=== PATIENT | female | born 1935 | race Caucasian/White ===

== ENCOUNTER 2021-01-15 18:09 | Inpatient (IN) ==
[2021-01-15 23:23] LABS: ABS Lymphocytes 0.5 10^3/ul (1.0-4.8); ABS Monocytes 0.9 10^3/ul (0-0.8); ABS Neutrophils 6.6 10^3/ul (1.5-7.7); Hematocrit 31 % (35-47); Hemoglobin 10.3 g/dL (12.0-16.0); Lymphocyte % 6.5 %; Mean Corpuscular HGB Conc 33 g/dL (31-36); Mean Corpuscular Hemoglobin 29 pg (27-31); Mean Corpuscular Volume 88 fL (80-97); Mean Platelet Volume 8.3 fL (7.4-10.4); Platelet Count 256 10^3/uL (150-450); Red Blood Count 3.54 10^6 /uL (3.70-4.87); Red Cell Distribution Width 16 % (10-15)
[2021-01-15 23:31] LABS: Rapid COVID-19 Molecular Detected (Undetected)
[2021-01-15 23:38] LABS: Influenza A Molecular Negative (Negative); Influenza B Molecular Negative (Negative)
[2021-01-15 23:44] LABS: ALT 9 U/L (7-52); AST 14 U/L (13-39); Albumin 3.4 g/dL (3.2-5.2); Albumin/Globulin Ratio 0.9 (1-3); Alkaline Phosphatase 93 U/L (35-149); Anion Gap 7 mmol/L (2-11); Blood Urea Nitrogen 18 mg/dL (6-24); C Reactive Protein 93.96 mg/L (<8.01); CO2 Carbon Dioxide 26 mmol/L (22-32); Chloride 107 mmol/L (101-111); Globulin 3.7 g/dL (2-4); Glucose 118 mg/dL (70-100); Potassium 3.5 mmol/L (3.5-5.0); Sodium 140 mmol/L (135-145); Total Protein 7.1 g/dL (6.4-8.9)
[2021-01-15 23:51] LABS: Troponin I 0.03 ng/mL (<0.03)
[2021-01-15 23:54] LABS: TSH Ultra Thyroid Stim Horm 3.71 mcIU/mL (0.34-5.60)
[2021-01-16 00:38] LABS: Activated Partial Thrombo Time 30.6 seconds (26.0-38.0); INR 1.21 (0.86-1.15)
[2021-01-16 00:38] LABS: Venous Bicarbonate HCO3 24.3 mmol/L (24-28)
[2021-01-16 00:44] LABS: LDH 189 U/L (140-271)
[2021-01-16 01:04] LABS: Ferritin 193.6 ng/mL (11-307)
[2021-01-16] MEDS ORDERED: NS 0.9% 1000 ml BAG 1,000 ML IV SCH (07:00)
[2021-01-16] MEDS: Enoxaparin 40 MG/0.4 ML SYR SUBCUT SCH (08:15)
[2021-01-16 16:15] LABS: Body Fluid Source Synovial Fluid
[2021-01-16 17:26] LABS: Body Fluid WBC 20236 /mcL
[2021-01-16] MEDS ORDERED: Vancomycin 1,000 MG in NS 0.9% 250 ml 250 ML IVPB ONE (17:49)
[2021-01-16 17:50] LABS: Body Fluid Appearance Cloudy; Body Fluid Color Yellow; Body Fluid Mono 1 %; Body Fluid Total Cells Counted 200
[2021-01-16] MEDS ORDERED: Vancomycin 1,000 MG in NS 0.9% 250 ml 250 ML IVPB SCH (18:00)
[2021-01-16] MEDS ORDERED: Vancomycin per Pharmacy 1 EA NOTE FOLLOW UP SCH (18:00)
[2021-01-16] MEDS ORDERED: Vancomycin 1,250 MG in NS 0.9% 250 ml 250 ML IVPB ONE (18:15)
[2021-01-17] MEDS: ceFAZolin 2 GM in NS PREMIX 2 GM/100 ML BAG IVPB SCH ×3 (03:34→19:45)
[2021-01-17 06:22] LABS: ABS Lymphocytes 0.5 10^3/ul (1.0-4.8); ABS Monocytes 0.6 10^3/ul (0-0.8); ABS Neutrophils 4.7 10^3/ul (1.5-7.7); Eosinophil % 0.2 %; Hematocrit 28 % (35-47); Hemoglobin 9.1 g/dL (12.0-16.0); Lymphocyte % 8.4 %; Mean Corpuscular HGB Conc 33 g/dL (31-36); Mean Corpuscular Hemoglobin 29 pg (27-31); Mean Corpuscular Volume 88 fL (80-97); Mean Platelet Volume 8.3 fL (7.4-10.4); Platelet Count 221 10^3/uL (150-450); Red Blood Count 3.15 10^6 /uL (3.70-4.87); Red Cell Distribution Width 16 % (10-15); White Blood Count 5.9 10^3/uL (3.5-10.8)
[2021-01-17 06:47] LABS: Calcium 8.4 mg/dL (8.6-10.3); Potassium 3.2 mmol/L (3.5-5.0); eGFR CKD-EPI 86.4 (>60)
[2021-01-17 07:57] LABS: Magnesium 1.7 mg/dL (1.9-2.7)
[2021-01-17] MEDS ORDERED: Vancomycin 1,250 MG in NS 0.9% 250 ml 250 ML IVPB SCH (08:00)
[2021-01-17] MEDS: Enoxaparin 40 MG/0.4 ML SYR SUBCUT SCH (09:38)
[2021-01-17] MEDS ORDERED: Potassium Chlor 10 meq TAB PO ONE (14:16)
[2021-01-17] MEDS ORDERED: Magnesium Sulfate 2 gm BAG 2 GM/50 ML BAG IVPB ONE (21:33)
[2021-01-18] MEDS: ceFAZolin 2 GM in NS PREMIX 2 GM/100 ML BAG IVPB SCH ×3 (03:33→20:16)
[2021-01-18] MEDS ORDERED: Vancomycin Trough Check NOTE FOLLOW UP ONE (07:30)
[2021-01-18 09:03] LABS: ABS Eosinophils 0.1 10^3/ul (0-0.6); ABS Lymphocytes 0.8 10^3/ul (1.0-4.8); ABS Monocytes 0.4 10^3/ul (0-0.8); ABS Neutrophils 5.2 10^3/ul (1.5-7.7); Eosinophil % 0.9 %; Hematocrit 29 % (35-47); Hemoglobin 9.6 g/dL (12.0-16.0); Lymphocyte % 11.9 %; Mean Corpuscular HGB Conc 33 g/dL (31-36); Mean Corpuscular Hemoglobin 29 pg (27-31); Mean Corpuscular Volume 87 fL (80-97); Platelet Count 262 10^3/uL (150-450); Red Blood Count 3.31 10^6 /uL (3.70-4.87); Red Cell Distribution Width 17 % (10-15); White Blood Count 6.5 10^3/uL (3.5-10.8)
[2021-01-18 09:23] LABS: Calcium 8.5 mg/dL (8.6-10.3); Magnesium 2.2 mg/dL (1.9-2.7); Potassium 3.7 mmol/L (3.5-5.0); eGFR CKD-EPI 73.1 (>60)
[2021-01-18 09:40] LABS: eGFR CKD-EPI 73.1 (>60)
[2021-01-18] MEDS: Enoxaparin 40 MG/0.4 ML SYR SUBCUT SCH (10:37)
[2021-01-19] MEDS: ceFAZolin 2 GM in NS PREMIX 2 GM/100 ML BAG IVPB SCH ×3 (04:31→21:20)
[2021-01-19 07:19] LABS: ABS Eosinophils 0.1 10^3/ul (0-0.6); ABS Lymphocytes 0.6 10^3/ul (1.0-4.8); ABS Monocytes 0.4 10^3/ul (0-0.8); ABS Neutrophils 4.2 10^3/ul (1.5-7.7); Hematocrit 27 % (35-47); Lymphocyte % 11.1 %; Mean Corpuscular HGB Conc 34 g/dL (31-36); Mean Corpuscular Hemoglobin 30 pg (27-31); Mean Corpuscular Volume 88 fL (80-97); Mean Platelet Volume 8.2 fL (7.4-10.4); Platelet Count 254 10^3/uL (150-450); Red Blood Count 3.05 10^6 /uL (3.70-4.87); Red Cell Distribution Width 16 % (10-15); White Blood Count 5.3 10^3/uL (3.5-10.8)
[2021-01-19 07:35] LABS: Calcium 8.4 mg/dL (8.6-10.3); eGFR CKD-EPI 64.3 (>60)
[2021-01-19] MEDS: Enoxaparin 40 MG/0.4 ML SYR SUBCUT SCH (10:09)
[2021-01-20] MEDS: ceFAZolin 2 GM in NS PREMIX 2 GM/100 ML BAG IVPB SCH (03:05)
[2021-01-20] MEDS: Enoxaparin 40 MG/0.4 ML SYR SUBCUT SCH (07:54)
[2021-01-20 13:25] LABS: % Iron Saturation 12 % (14 - 50); Total Iron Binding Capacity 110 mcg/dL (250 - 400)
[2021-01-21] MEDS: Enoxaparin 40 MG/0.4 ML SYR SUBCUT SCH (09:10)
[2021-01-22] MEDS: Enoxaparin 40 MG/0.4 ML SYR SUBCUT SCH (09:37)
[2021-01-22 14:39] VITALS: BP 133/59
[2021-01-23 14:18] LABS: Cyclic Citrullinated Pept IgG <15.6 U
[2021-01-24 13:07] LABS: B. garinii/B. afzellii PCR Negative (Negative)
== END 2021-01-22 16:08 | disposition swing bed (61) | DRG 564 ==
LOC: ED 18:09 → EDHOLD 01-16 02:31 → SUATTDRO 01-16 02:31 → EDHOLD 01-16 09:48 → MED 01-16 11:29
PROVIDERS: ADMIT Internal Medicine; ATTEND Internal Medicine

== ENCOUNTER 2021-01-22 16:08 | Inpatient (IN) ==
[2021-01-22] MEDS: Enoxaparin 40 MG/0.4 ML SYR SUBCUT SCH (21:19)
[2021-01-23] MEDS: Enoxaparin 40 MG/0.4 ML SYR SUBCUT SCH (21:14)
[2021-01-24] MEDS: Enoxaparin 40 MG/0.4 ML SYR SUBCUT SCH (20:41)
[2021-01-25] MEDS: Enoxaparin 40 MG/0.4 ML SYR SUBCUT SCH (20:46)
[2021-01-26] MEDS: Enoxaparin 40 MG/0.4 ML SYR SUBCUT SCH (20:31)
[2021-01-27 06:05] LABS: Hematocrit 24 % (35-47); Hemoglobin 7.9 g/dL (12.0-16.0); Mean Platelet Volume 7.9 fL (7.4-10.4); Platelet Count 343 10^3/uL (150-450)
[2021-01-27 06:28] LABS: eGFR CKD-EPI 86.7 (>60)
[2021-01-27] MEDS: Enoxaparin 40 MG/0.4 ML SYR SUBCUT SCH (20:18)
[2021-01-28] MEDS: Enoxaparin 40 MG/0.4 ML SYR SUBCUT SCH (20:46)
[2021-01-29] MEDS ORDERED: COVID-19 VACCINE, MRNA(MODERNA)/PF 100 MCG/0.5 ML IM ONE (15:00)
[2021-01-29] MEDS: Enoxaparin 40 MG/0.4 ML SYR SUBCUT SCH (20:11)
[2021-01-30] MEDS: Enoxaparin 40 MG/0.4 ML SYR SUBCUT SCH (20:55)
[2021-01-31] MEDS: Enoxaparin 40 MG/0.4 ML SYR SUBCUT SCH (21:25)
[2021-02-01] MEDS: Enoxaparin 40 MG/0.4 ML SYR SUBCUT SCH (20:47)
[2021-02-02 12:02] LABS: Rapid COVID-19 Molecular Detected (Undetected)
[2021-02-02] MEDS: Enoxaparin 40 MG/0.4 ML SYR SUBCUT SCH (17:36)
[2021-02-03 04:54] LABS: Hematocrit 25 % (35-47); Hemoglobin 8.2 g/dL (12.0-16.0); Mean Platelet Volume 7.5 fL (7.4-10.4); Platelet Count 363 10^3/uL (150-450)
[2021-02-03] MEDS: Enoxaparin 40 MG/0.4 ML SYR SUBCUT SCH (16:52)
[2021-02-04] MEDS: Enoxaparin 40 MG/0.4 ML SYR SUBCUT SCH (17:03)
[2021-02-05] MEDS: Enoxaparin 40 MG/0.4 ML SYR SUBCUT SCH (17:24)
[2021-02-06] MEDS: Enoxaparin 40 MG/0.4 ML SYR SUBCUT SCH (17:31)
[2021-02-07] MEDS: Enoxaparin 40 MG/0.4 ML SYR SUBCUT SCH (18:18)
[2021-02-08] MEDS: Enoxaparin 40 MG/0.4 ML SYR SUBCUT SCH (17:05)
[2021-02-09] MEDS: Enoxaparin 40 MG/0.4 ML SYR SUBCUT SCH (17:07)
[2021-02-10 06:22] LABS: Hematocrit 27 % (35-47); Hemoglobin 8.8 g/dL (12.0-16.0); Mean Platelet Volume 8.1 fL (7.4-10.4); Platelet Count 281 10^3/uL (150-450)
[2021-02-10 06:43] LABS: eGFR CKD-EPI 65.2 (>60)
[2021-02-10] MEDS: Enoxaparin 40 MG/0.4 ML SYR SUBCUT SCH (16:32)
[2021-02-11 08:18] VITALS: BP 166/79
== END 2021-02-11 11:45 | DRG 178 ==
LOC: SUATTDRO 16:08 → MED 16:08
PROVIDERS: ADMIT Internal Medicine; ATTEND Hospitalist

== ENCOUNTER 2021-06-28 15:05 | Inpatient (IN) ==
[2021-06-28] MEDS ORDERED: Ondansetron 4 mg VIAL 2 MG/ML 2 ml VIAL IV ONE (17:14)
[2021-06-28 17:48] LABS: ABS Lymphocytes 0.8 10^3/ul (1.0-4.8); ABS Monocytes 0.5 10^3/ul (0-0.8); Eosinophil % 0.2 %; Hematocrit 35 % (35-47); Lymphocyte % 10.7 %; Mean Corpuscular HGB Conc 32 g/dL (31-36); Mean Corpuscular Hemoglobin 28 pg (27-31); Mean Corpuscular Volume 89 fL (80-97); Mean Platelet Volume 8.7 fL (7.4-10.4); Nucleated Red Blood Cells % 0.1; Platelet Count 221 10^3/uL (150-450); Red Blood Count 3.92 10^6 /uL (3.70-4.87); Red Cell Distribution Width 18 % (10-15); White Blood Count 7.3 10^3/uL (3.5-10.8)
[2021-06-28 18:34] LABS: Albumin 3.8 g/dL (3.2-5.2); Albumin/Globulin Ratio 1.2 (1-3); Calcium 9.1 mg/dL (8.6-10.3); Globulin 3.2 g/dL (2-4); Potassium 3.1 mmol/L (3.5-5.0); Total Bilirubin 0.5 mg/dL (0.2-1.0); eGFR CKD-EPI 63.9 (>60)
[2021-06-28] MEDS ORDERED: Morphine 2 MG/ML SYRINGE IV PRN (19:43)
[2021-06-28 19:44] LABS: Magnesium 1.9 mg/dL (1.9-2.7)
[2021-06-28 19:58] LABS: TSH Ultra Thyroid Stim Horm 0.29 mcIU/mL (0.34-5.60)
[2021-06-28] MEDS ORDERED: Lactated Ringers 1000 ml BAG 1,000 ML IV SCH (20:00)
[2021-06-28] MEDS: KCL 20 MEQ/100 ML IVPREMIX 20 MEQ/100 ML BAG IV SCH ×2 (21:31→23:36)
[2021-06-28 21:34] LABS: T4, Total 15.15 mcg/dL (6.09-12.23)
[2021-06-28] MEDS ORDERED: Enoxaparin 40 MG/0.4 ML SYR SUBCUT SCH (22:00)
[2021-06-29] MEDS: Acetaminophen IV 1 GM/100ML 100 ML IV PRN ×3 (00:59→21:05)
[2021-06-29 01:19] LABS: Urine Appearance Cloudy; Urine Bilirubin Negative (Negative); Urine Blood 1+ (Negative); Urine Color Yellow; Urine Glucose Negative (Negative); Urine Ketones Negative (Negative); Urine Nitrite Negative (Negative); Urine Protein Negative (Negative); Urine Urobilinogen Negative (Negative)
[2021-06-29 01:21] LABS: Urine Bacteria Absent (Absent); Urine Red Blood Cell Trace(0-2/hpf) (Absent); Urine White Blood Cell Trace(0-5/hpf) (Absent)
[2021-06-29] MEDS: KCL 20 MEQ/100 ML IVPREMIX 20 MEQ/100 ML BAG IV SCH (02:54)
[2021-06-29 06:53] LABS: ABS Lymphocytes 0.9 10^3/ul (1.0-4.8); ABS Monocytes 0.5 10^3/ul (0-0.8); ABS Neutrophils 3.5 10^3/ul (1.5-7.7); Eosinophil % 0.2 %; Hematocrit 31 % (35-47); Hemoglobin 10.4 g/dL (12.0-16.0); Lymphocyte % 17.9 %; Mean Corpuscular HGB Conc 33 g/dL (31-36); Mean Corpuscular Hemoglobin 30 pg (27-31); Mean Corpuscular Volume 89 fL (80-97); Mean Platelet Volume 8.6 fL (7.4-10.4); Platelet Count 198 10^3/uL (150-450); Red Blood Count 3.51 10^6 /uL (3.70-4.87); Red Cell Distribution Width 18 % (10-15); White Blood Count 4.9 10^3/uL (3.5-10.8)
[2021-06-29 07:10] LABS: Potassium 3.8 mmol/L (3.5-5.0); eGFR CKD-EPI 86.1 (>60)
[2021-06-29 09:54] LABS: Calcium 8.3 mg/dL (8.6-10.3)
[2021-06-29 12:47] LABS: Free T4 1.44 ng/dL (0.61-1.12)
[2021-06-29] MEDS ORDERED: Enoxaparin 40 MG/0.4 ML SYR SUBCUT SCH (22:00)
[2021-06-30 06:01] LABS: ABS Lymphocytes 0.8 10^3/ul (1.0-4.8); ABS Monocytes 0.7 10^3/ul (0-0.8); ABS Neutrophils 5.6 10^3/ul (1.5-7.7); Eosinophil % 0.4 %; Hematocrit 30 % (35-47); Hemoglobin 9.6 g/dL (12.0-16.0); Lymphocyte % 10.8 %; Mean Corpuscular HGB Conc 32 g/dL (31-36); Mean Corpuscular Hemoglobin 28 pg (27-31); Mean Corpuscular Volume 88 fL (80-97); Mean Platelet Volume 8.8 fL (7.4-10.4); Platelet Count 180 10^3/uL (150-450); Red Cell Distribution Width 18 % (10-15); White Blood Count 7.1 10^3/uL (3.5-10.8)
[2021-06-30] MEDS ORDERED: Bupivacaine 0.25% SDV PF 10 ML VIAL INJ ONE ×2 (11:06→13:46)
[2021-06-30] MEDS ORDERED: Bupivacaine 0.5% W/EPI SDV 10 ML VIAL INJ ONE (11:06)
[2021-06-30] MEDS ORDERED: Propofol 10 MG/ML 20 ML BTL ONE (13:54)
[2021-06-30] MEDS ORDERED: fentaNYL 100 mcg/2 ml 50 MCG/ML VIAL ONE ×2 (13:57→18:52)
[2021-06-30] MEDS ORDERED: Rocuronium 50 mg VIAL 10 mg/ml 5 ml VIAL (50 mg) ONE (13:59)
[2021-06-30] MEDS ORDERED: ceFAZolin 2 GM in NS PREMIX 2 GM/100 ML BAG IVPB ONE (14:07)
[2021-06-30 14:22] LABS: Activated Partial Thrombo Time 31.4 seconds (26.0-38.0); INR 1.2 (0.86-1.15)
[2021-06-30] MEDS ORDERED: Phenylephrine IV 10 MG/ML 1 ml VIAL ONE (15:41)
[2021-06-30] MEDS ORDERED: Dexamethasone IV 4 MG/ML VIAL 1 ml VIAL ONE (17:08)
[2021-06-30] MEDS ORDERED: Acetaminophen IV 1 GM/100ML 100 ML IV ONE (17:09)
[2021-06-30] MEDS ORDERED: Ondansetron 4 mg VIAL 2 MG/ML 2 ml VIAL ONE (17:52)
[2021-07-01] MEDS: ceFAZolin 1 GM X 3 DOSES POST-OP Q8H (AddVan) IVPB SCH ×3 (01:26→17:16)
[2021-07-01] MEDS: Acetaminophen IV 1 GM/100ML 100 ML IV PRN ×2 (04:48→21:30)
[2021-07-01 06:26] LABS: Hematocrit 29 % (35-47); Hemoglobin 9.6 g/dL (12.0-16.0); Mean Corpuscular HGB Conc 34 g/dL (31-36); Mean Corpuscular Hemoglobin 30 pg (27-31); Mean Corpuscular Volume 89 fL (80-97); Mean Platelet Volume 8.9 fL (7.4-10.4); Platelet Count 195 10^3/uL (150-450); Red Blood Count 3.24 10^6 /uL (3.70-4.87); Red Cell Distribution Width 17 % (10-15); White Blood Count 8.6 10^3/uL (3.5-10.8)
[2021-07-01 07:03] LABS: Calcium 8.3 mg/dL (8.6-10.3); Potassium 3.9 mmol/L (3.5-5.0); eGFR CKD-EPI 65.7 (>60)
[2021-07-01] MEDS: Enoxaparin 30 MG/0.3 ML SYR SUBCUT SCH (09:36)
[2021-07-01] MEDS ORDERED: Polyethylene Glycol 3350 17 GM PACKET PO PRN (14:02)
[2021-07-01] MEDS: cefTRIAXone 1 gm/50 mL D5W 1 GM/50 ML BAG IV SCH (17:51)
[2021-07-01] MEDS: Senna TAB 8.6 mg TAB PO PRN (21:26)
[2021-07-02 06:19] LABS: Hematocrit 26 % (35-47); Hemoglobin 8.7 g/dL (12.0-16.0)
[2021-07-02 06:50] LABS: Calcium 8.1 mg/dL (8.6-10.3); eGFR CKD-EPI 55.6 (>60)
[2021-07-02] MEDS: Enoxaparin 30 MG/0.3 ML SYR SUBCUT SCH (09:37)
[2021-07-02] MEDS ORDERED: Senna TAB 8.6 mg TAB PO PRN (14:37)
[2021-07-02] MEDS: cefTRIAXone 1 gm/50 mL D5W 1 GM/50 ML BAG IV SCH (17:25)
[2021-07-03] MEDS: Acetaminophen IV 1 GM/100ML 100 ML IV PRN (00:07)
[2021-07-03 05:44] LABS: ABS Eosinophils 0.1 10^3/ul (0-0.6); ABS Lymphocytes 0.9 10^3/ul (1.0-4.8); ABS Monocytes 0.5 10^3/ul (0-0.8); ABS Neutrophils 4.3 10^3/ul (1.5-7.7); Eosinophil % 1.6 %; Hematocrit 28 % (35-47); Lymphocyte % 15.3 %; Mean Corpuscular HGB Conc 32 g/dL (31-36); Mean Corpuscular Hemoglobin 29 pg (27-31); Mean Corpuscular Volume 88 fL (80-97); Mean Platelet Volume 8.8 fL (7.4-10.4); Platelet Count 219 10^3/uL (150-450); Red Blood Count 3.17 10^6 /uL (3.70-4.87); Red Cell Distribution Width 17 % (10-15); White Blood Count 5.9 10^3/uL (3.5-10.8)
[2021-07-03 06:27] LABS: Calcium 8.2 mg/dL (8.6-10.3); Magnesium 1.8 mg/dL (1.9-2.7); Potassium 4.3 mmol/L (3.5-5.0)
[2021-07-03] MEDS: Enoxaparin 30 MG/0.3 ML SYR SUBCUT SCH (08:40)
[2021-07-03] MEDS ORDERED: Magnesium Sulfate IV 1GM/100ML 1 GM/100 ML BAG IV ONE (09:07)
[2021-07-03] MEDS: Magnesium Hydroxide LIQ 30 ML UDC PO PRN (13:48)
[2021-07-03] MEDS: cefTRIAXone 1 gm/50 mL D5W 1 GM/50 ML BAG IV SCH (17:24)
[2021-07-04] MEDS: Enoxaparin 30 MG/0.3 ML SYR SUBCUT SCH (08:41)
[2021-07-04] MEDS: Magnesium Hydroxide LIQ 30 ML UDC PO PRN (13:11)
[2021-07-05] MEDS: Enoxaparin 30 MG/0.3 ML SYR SUBCUT SCH (10:30)
[2021-07-06 06:12] LABS: ABS Eosinophils 0.1 10^3/ul (0-0.6); ABS Lymphocytes 0.6 10^3/ul (1.0-4.8); ABS Monocytes 0.5 10^3/ul (0-0.8); ABS Neutrophils 3.2 10^3/ul (1.5-7.7); Eosinophil % 2.2 %; Hematocrit 25 % (35-47); Lymphocyte % 13.9 %; Mean Corpuscular HGB Conc 33 g/dL (31-36); Mean Corpuscular Hemoglobin 29 pg (27-31); Mean Corpuscular Volume 88 fL (80-97); Mean Platelet Volume 8.3 fL (7.4-10.4); Nucleated Red Blood Cells % 0.1; Platelet Count 295 10^3/uL (150-450); Red Blood Count 2.81 10^6 /uL (3.70-4.87); Red Cell Distribution Width 17 % (10-15); White Blood Count 4.4 10^3/uL (3.5-10.8)
[2021-07-06 06:30] LABS: Calcium 8.3 mg/dL (8.6-10.3); Potassium 5.2 mmol/L (3.5-5.0); eGFR CKD-EPI 87.1 (>60)
[2021-07-06] MEDS: Enoxaparin 30 MG/0.3 ML SYR SUBCUT SCH (08:52)
[2021-07-06 15:40] LABS: Albumin 2.8 g/dL (3.2-5.2); Albumin/Globulin Ratio 1.2 (1-3); Direct Bilirubin 0.1 mg/dL (0.03-0.18); Globulin 2.3 g/dL (2-4); Indirect Bilirubin 0.4 mg/dL (0.3-1.0); Total Bilirubin 0.5 mg/dL (0.2-1.0); Total Protein 5.1 g/dL (6.4-8.9)
[2021-07-07] MEDS: Enoxaparin 30 MG/0.3 ML SYR SUBCUT SCH (09:03)
[2021-07-07 12:15] LABS: ABS Eosinophils 0.1 10^3/ul (0-0.6); ABS Lymphocytes 0.6 10^3/ul (1.0-4.8); ABS Monocytes 0.6 10^3/ul (0-0.8); ABS Neutrophils 3.2 10^3/ul (1.5-7.7); Eosinophil % 2.1 %; Hematocrit 27 % (35-47); Hemoglobin 8.9 g/dL (12.0-16.0); Lymphocyte % 13.7 %; Mean Corpuscular HGB Conc 33 g/dL (31-36); Mean Corpuscular Hemoglobin 29 pg (27-31); Mean Corpuscular Volume 90 fL (80-97); Mean Platelet Volume 8.3 fL (7.4-10.4); Platelet Count 381 10^3/uL (150-450); Red Blood Count 3.04 10^6 /uL (3.70-4.87); Red Cell Distribution Width 17 % (10-15); White Blood Count 4.5 10^3/uL (3.5-10.8)
[2021-07-07 13:32] LABS: Calcium 8.1 mg/dL (8.6-10.3); Magnesium 2.3 mg/dL (1.9-2.7); eGFR CKD-EPI 65.7 (>60)
[2021-07-07 13:33] LABS: Potassium 5.1 mmol/L (3.5-5.0)
[2021-07-07] MEDS: Senna TAB 8.6 mg TAB PO PRN (20:51)
[2021-07-08 05:35] LABS: Calcium 7.9 mg/dL (8.6-10.3); Potassium 4.5 mmol/L (3.5-5.0); eGFR CKD-EPI 68.5 (>60)
[2021-07-08] MEDS: Enoxaparin 30 MG/0.3 ML SYR SUBCUT SCH (08:44)
[2021-07-09] MEDS: Enoxaparin 30 MG/0.3 ML SYR SUBCUT SCH (09:29)
[2021-07-09] MEDS ORDERED: COVID-19 VACCINE, MRNA(MODERNA)/PF 100 MCG/0.5 ML IM ONE (15:00)
[2021-07-10] MEDS: Enoxaparin 30 MG/0.3 ML SYR SUBCUT SCH (10:34)
[2021-07-10 15:28] VITALS: BP 130/76
== END 2021-07-10 17:04 | disposition swing bed (61) | DRG 481 ==
LOC: ED 15:05 → EDHOLD 19:13 → SUATTDRO 19:13 → SSU 06-29 00:19
PROVIDERS: ADMIT Internal Medicine; ATTEND Internal Medicine

== ENCOUNTER 2021-07-10 17:16 | Inpatient (IN) ==
[2021-07-10] MEDS ORDERED: Polyethylene Glycol 3350 17 GM PACKET PO PRN (18:06)
[2021-07-10] MEDS ORDERED: Senna TAB 8.6 mg TAB PO PRN (18:06)
[2021-07-11] MEDS: Enoxaparin 30 MG/0.3 ML SYR SUBCUT SCH (09:37)
[2021-07-12] MEDS: Enoxaparin 30 MG/0.3 ML SYR SUBCUT SCH (08:52)
[2021-07-13] MEDS: Enoxaparin 30 MG/0.3 ML SYR SUBCUT SCH (08:14)
[2021-07-14] MEDS: Magnesium Hydroxide LIQ 30 ML UDC PO PRN (08:17)
[2021-07-14] MEDS: Enoxaparin 30 MG/0.3 ML SYR SUBCUT SCH (08:17)
[2021-07-14] MEDS ORDERED: Pneumococcal Vac 23-Polyvalent IM ONE (09:00)
[2021-07-15] MEDS: Enoxaparin 30 MG/0.3 ML SYR SUBCUT SCH (08:44)
[2021-07-15 15:09] LABS: Rapid COVID-19 Molecular Undetected (Undetected)
[2021-07-15 16:01] LABS: ABS Eosinophils 0.1 10^3/ul (0-0.6); ABS Lymphocytes 1.1 10^3/ul (1.0-4.8); ABS Monocytes 0.5 10^3/ul (0-0.8); ABS Neutrophils 3.5 10^3/ul (1.5-7.7); Hematocrit 30 % (35-47); Hemoglobin 9.3 g/dL (12.0-16.0); Lymphocyte % 21.1 %; Mean Corpuscular HGB Conc 32 g/dL (31-36); Mean Corpuscular Hemoglobin 29 pg (27-31); Mean Corpuscular Volume 91 fL (80-97); Mean Platelet Volume 7.2 fL (7.4-10.4); Platelet Count 486 10^3/uL (150-450); Red Blood Count 3.26 10^6 /uL (3.70-4.87); Red Cell Distribution Width 18 % (10-15); White Blood Count 5.1 10^3/uL (3.5-10.8)
[2021-07-15 16:45] LABS: Calcium 8.4 mg/dL (8.6-10.3); Potassium 4.4 mmol/L (3.5-5.0); eGFR CKD-EPI 74.8 (>60)
[2021-07-15 19:17] LABS: TSH Ultra Thyroid Stim Horm 11.29 mcIU/mL (0.34-5.60)
[2021-07-16 07:34] VITALS: BP 149/74
[2021-07-16] MEDS: Magnesium Hydroxide LIQ 30 ML UDC PO PRN (09:12)
== END 2021-07-16 17:35 | DRG 536 ==
LOC: SUATTDRO 17:16 → SSU 17:16
PROVIDERS: ADMIT Internal Medicine; ATTEND Internal Medicine

== ENCOUNTER 2021-11-29 19:55 | Inpatient (IN) ==
[2021-11-29 22:42] LABS: Activated Partial Thrombo Time 27.6 seconds (26.0-38.0); INR 1.23 (0.89-1.11)
[2021-11-29 22:53] LABS: Hematocrit 36 % (35-47); Hemoglobin 11.6 g/dL (12.0-16.0); Mean Corpuscular HGB Conc 32 g/dL (31-36); Mean Corpuscular Hemoglobin 30 pg (27-31); Mean Corpuscular Volume 92 fL (80-97); Red Blood Count 3.88 10^6 /uL (3.70-4.87); Red Cell Distribution Width 18 % (10-15); White Blood Count 10.7 10^3/uL (3.5-10.8)
[2021-11-29 23:08] LABS: ALT 18 U/L (7-52); Albumin 3.8 g/dL (3.2-5.2); Albumin/Globulin Ratio 1.1 (1-3); Alkaline Phosphatase 122 U/L (35-149); Blood Urea Nitrogen 27 mg/dL (6-24); CO2 Carbon Dioxide 24 mmol/L (22-32); Calcium 9.3 mg/dL (8.6-10.3); Chloride 106 mmol/L (101-111); Globulin 3.4 g/dL (2-4); Glucose 85 mg/dL (70-100); Sodium 145 mmol/L (135-145); Total Protein 7.2 g/dL (6.4-8.9); eGFR CKD-EPI 70.5 (>60)
[2021-11-29 23:15] LABS: Anion Gap 15 mmol/L (2-11)
[2021-11-29 23:49] LABS: ABS Lymphocytes 0.6 10^3/ul (1.0-4.8); ABS Monocytes 0.5 10^3/ul (0-0.8); ABS Neutrophils 9.6 10^3/ul (1.5-7.7); Eosinophil % 0.3 %; Lymphocyte % 5.9 %; Nucleated Red Blood Cells % 0.1; Platelet Count Platelets clumped. 10^3/uL (150-450)
[2021-11-29] MEDS: NS 0.9% 1000 ml BAG 1,000 ML IV SCH (23:51)
[2021-11-29] MEDS: Morphine 2 MG/ML SYRINGE IV PRN (23:52)
[2021-11-30 01:48] LABS: Potassium Redraw 2.9 mmol/L (3.5-5.0)
[2021-11-30 05:34] LABS: ABS Eosinophils 0.1 10^3/ul (0-0.6); ABS Lymphocytes 0.7 10^3/ul (1.0-4.8); ABS Monocytes 0.4 10^3/ul (0-0.8); ABS Neutrophils 5.6 10^3/ul (1.5-7.7); Hematocrit 31 % (35-47); Hemoglobin 10.2 g/dL (12.0-16.0); Lymphocyte % 10.4 %; Mean Corpuscular HGB Conc 33 g/dL (31-36); Mean Corpuscular Hemoglobin 30 pg (27-31); Mean Corpuscular Volume 92 fL (80-97); Mean Platelet Volume 8.8 fL (7.4-10.4); Platelet Count 174 10^3/uL (150-450); Red Cell Distribution Width 18 % (10-15); White Blood Count 6.9 10^3/uL (3.5-10.8)
[2021-11-30 06:22] LABS: Calcium 8.5 mg/dL (8.6-10.3); eGFR CKD-EPI 86.1 (>60)
[2021-11-30 06:36] LABS: Potassium 2.7 mmol/L (3.5-5.0)
[2021-11-30] MEDS: KCL 20 MEQ/100 ML IVPREMIX 20 MEQ/100 ML BAG IV SCH ×3 (06:47→11:31)
[2021-11-30] MEDS: Morphine 2 MG/ML SYRINGE IV PRN (07:46)
[2021-11-30] MEDS: NS 0.9% 1000 ml BAG 1,000 ML IV SCH (13:23)
[2021-11-30 14:21] LABS: Blood Urea Nitrogen 22 mg/dL (6-24); CO2 Carbon Dioxide 23 mmol/L (22-32); Calcium 8.6 mg/dL (8.6-10.3); Glucose 97 mg/dL (70-100); Magnesium 1.8 mg/dL (1.9-2.7); Potassium 3.7 mmol/L (3.5-5.0); Sodium 144 mmol/L (135-145); eGFR CKD-EPI 85.8 (>60)
[2021-11-30 14:32] LABS: Anion Gap 9 mmol/L (2-11); Chloride 112 mmol/L (101-111)
[2021-11-30] MEDS ORDERED: Morphine 2 MG/ML SYRINGE IV PRN ×2 (15:09→15:10)
[2021-11-30] MEDS ORDERED: Magnesium Sulfate 2 gm BAG 2 GM/50 ML BAG IVPB ONE (16:18)
[2021-11-30] MEDS: NS 0.45% 1000 ml BAG 1,000 ML IV SCH (16:31)
[2021-11-30 17:30] LABS: Total Iron Binding Capacity 199 mcg/dL (250-450); Transferrin 142 mg/dL (203-362)
[2021-11-30 17:45] LABS: TSH Ultra Thyroid Stim Horm 1.31 mcIU/mL (0.34-5.60)
[2021-11-30 17:53] LABS: Ferritin 335.1 ng/mL (11-307)
[2021-11-30 17:57] LABS: Folate 19.53 ng/mL (5.90-24.80)
[2021-11-30 17:58] LABS: Vitamin B12 207 pg/mL (180-914)
[2021-11-30 18:00] LABS: % Iron Saturation 10 % (15-55); Iron < 20 ug/dL (50-212); Unsaturated Iron Binding 179 ug/dL
[2021-11-30] MEDS: Heparin 5000 UNITS/ML 1 mL VIAL SUBCUT SCH (18:29)
[2021-11-30] MEDS ORDERED: Heparin 5000 UNITS/ML 1 mL VIAL SUBCUT SCH (22:00)
[2021-12-01] MEDS: Heparin 5000 UNITS/ML 1 mL VIAL SUBCUT SCH (02:01)
[2021-12-01] MEDS: NS 0.45% 1000 ml BAG 1,000 ML IV SCH (05:49)
[2021-12-01 06:41] LABS: ABS Eosinophils 0.3 10^3/ul (0-0.6); ABS Lymphocytes 1.1 10^3/ul (1.0-4.8); ABS Monocytes 0.5 10^3/ul (0-0.8); ABS Neutrophils 6.3 10^3/ul (1.5-7.7); Hematocrit 29 % (35-47); Hemoglobin 9.6 g/dL (12.0-16.0); Lymphocyte % 13.4 %; Mean Corpuscular HGB Conc 33 g/dL (31-36); Mean Corpuscular Hemoglobin 30 pg (27-31); Mean Corpuscular Volume 92 fL (80-97); Mean Platelet Volume 9.1 fL (7.4-10.4); Platelet Count 182 10^3/uL (150-450); Red Cell Distribution Width 18 % (10-15); White Blood Count 8.2 10^3/uL (3.5-10.8)
[2021-12-01 07:15] LABS: Calcium 8.2 mg/dL (8.6-10.3); Magnesium 2.2 mg/dL (1.9-2.7); Potassium 3.7 mmol/L (3.5-5.0); eGFR CKD-EPI 82.4 (>60)
[2021-12-01] MEDS ORDERED: Buffered Lidocaine 1% SYRIN 1 ml INTRADERM ONE (15:34)
[2021-12-01] MEDS ORDERED: ceFAZolin 2 GM in NS PREMIX 2 GM/100 ML BAG IVPB ONE (15:52)
[2021-12-01] MEDS ORDERED: Propofol 10 MG/ML 20 ML BTL ONE (15:53)
[2021-12-01] MEDS ORDERED: Lidocaine 2% PF 5 ML VIAL ONE (15:53)
[2021-12-01] MEDS ORDERED: Lactated Ringers 1000 ml BAG 1,000 ML IV SCH (16:00)
[2021-12-01] MEDS ORDERED: Bupivacaine 0.5% SDV PF 30ML VIAL ONE (16:04)
[2021-12-01] MEDS ORDERED: fentaNYL 100 mcg/2 ml 50 MCG/ML VIAL ONE (16:20)
[2021-12-01] MEDS ORDERED: Rocuronium 50 mg VIAL 10 mg/ml 5 ml VIAL (50 mg) ONE (16:21)
[2021-12-01] MEDS ORDERED: Phenylephrine IV 10 MG/ML 1 ml VIAL ONE (16:23)
[2021-12-01] MEDS ORDERED: Dexamethasone IV 4 MG/ML VIAL 1 ml VIAL ONE (17:11)
[2021-12-01] MEDS ORDERED: Ondansetron 4 mg VIAL 2 MG/ML 2 ml VIAL ONE (17:11)
[2021-12-01] MEDS ORDERED: Morphine 10 MG/ML VIAL (1 ml) ONE (17:33)
[2021-12-02] MEDS: ceFAZolin 1 GM X 3 DOSES POST-OP Q8H (AddVan) IVPB SCH ×3 (00:42→16:16)
[2021-12-02] MEDS: NS 0.45% 1000 ml BAG 1,000 ML IV SCH ×2 (01:41→14:53)
[2021-12-02 06:15] LABS: ABS Lymphocytes 0.4 10^3/ul (1.0-4.8); ABS Monocytes 0.3 10^3/ul (0-0.8); ABS Neutrophils 5.3 10^3/ul (1.5-7.7); Hematocrit 29 % (35-47); Hemoglobin 9.5 g/dL (12.0-16.0); Lymphocyte % 6.3 %; Mean Corpuscular HGB Conc 33 g/dL (31-36); Mean Corpuscular Hemoglobin 31 pg (27-31); Mean Corpuscular Volume 93 fL (80-97); Mean Platelet Volume 8.9 fL (7.4-10.4); Platelet Count 183 10^3/uL (150-450); Red Blood Count 3.09 10^6 /uL (3.70-4.87); Red Cell Distribution Width 18 % (10-15)
[2021-12-02 06:52] LABS: Calcium 8.1 mg/dL (8.6-10.3); Potassium 4.3 mmol/L (3.5-5.0); eGFR CKD-EPI 87.1 (>60)
[2021-12-03] MEDS: NS 0.45% 1000 ml BAG 1,000 ML IV SCH (05:47)
[2021-12-03 06:24] LABS: ABS Lymphocytes 0.8 10^3/ul (1.0-4.8); ABS Monocytes 0.5 10^3/ul (0-0.8); ABS Neutrophils 4.8 10^3/ul (1.5-7.7); Eosinophil % 0.8 %; Hematocrit 27 % (35-47); Hemoglobin 8.7 g/dL (12.0-16.0); Lymphocyte % 13.1 %; Mean Corpuscular HGB Conc 32 g/dL (31-36); Mean Corpuscular Hemoglobin 30 pg (27-31); Mean Corpuscular Volume 92 fL (80-97); Mean Platelet Volume 8.6 fL (7.4-10.4); Platelet Count 191 10^3/uL (150-450); Red Blood Count 2.95 10^6 /uL (3.70-4.87); Red Cell Distribution Width 17 % (10-15); White Blood Count 6.1 10^3/uL (3.5-10.8)
[2021-12-03 12:48] VITALS: BP 122/67
== END 2021-12-03 09:30 | DRG 522 ==
LOC: ED 19:55 → SUATTDRO 23:29 → EDHOLD 23:29 → SSU 11-30 07:41
PROVIDERS: ADMIT Hospitalist; ATTEND Internal Medicine

== ENCOUNTER 2021-12-03 09:06 | Inpatient (IN) ==
[2021-12-03] MEDS ORDERED: Senna TAB 8.6 mg TAB PO PRN (17:06)
[2021-12-05 07:07] LABS: ABS Eosinophils 0.2 10^3/ul (0-0.6); ABS Lymphocytes 0.6 10^3/ul (1.0-4.8); ABS Monocytes 0.4 10^3/ul (0-0.8); ABS Neutrophils 4.2 10^3/ul (1.5-7.7); Eosinophil % 3.3 %; Hematocrit 26 % (35-47); Hemoglobin 8.9 g/dL (12.0-16.0); Lymphocyte % 10.9 %; Mean Corpuscular HGB Conc 34 g/dL (31-36); Mean Corpuscular Hemoglobin 31 pg (27-31); Mean Corpuscular Volume 92 fL (80-97); Mean Platelet Volume 8.4 fL (7.4-10.4); Platelet Count 245 10^3/uL (150-450); Red Blood Count 2.83 10^6 /uL (3.70-4.87); Red Cell Distribution Width 18 % (10-15); White Blood Count 5.5 10^3/uL (3.5-10.8)
[2021-12-05 07:57] LABS: Albumin 2.3 g/dL (3.2-5.2); Calcium 8.1 mg/dL (8.6-10.3); Globulin 2.4 g/dL (2-4); Potassium 4.4 mmol/L (3.5-5.0); Total Bilirubin 0.5 mg/dL (0.2-1.0); Total Protein 4.7 g/dL (6.4-8.9); eGFR CKD-EPI 91.1 (>60)
[2021-12-12 06:16] LABS: ABS Eosinophils 0.1 10^3/ul (0-0.6); ABS Lymphocytes 0.9 10^3/ul (1.0-4.8); ABS Monocytes 0.5 10^3/ul (0-0.8); Eosinophil % 1.5 %; Hematocrit 25 % (35-47); Hemoglobin 8.2 g/dL (12.0-16.0); Lymphocyte % 16.2 %; Mean Corpuscular HGB Conc 33 g/dL (31-36); Mean Corpuscular Hemoglobin 31 pg (27-31); Mean Corpuscular Volume 93 fL (80-97); Mean Platelet Volume 7.5 fL (7.4-10.4); Platelet Count 437 10^3/uL (150-450); Red Blood Count 2.65 10^6 /uL (3.70-4.87); Red Cell Distribution Width 17 % (10-15); White Blood Count 5.4 10^3/uL (3.5-10.8)
[2021-12-12 07:03] LABS: Albumin 2.6 g/dL (3.2-5.2); Globulin 2.6 g/dL (2-4); Potassium 4.6 mmol/L (3.5-5.0); Total Bilirubin 0.3 mg/dL (0.2-1.0); Total Protein 5.2 g/dL (6.4-8.9); eGFR CKD-EPI 87.4 (>60)
[2021-12-19 06:58] LABS: ABS Eosinophils 0.1 10^3/ul (0-0.6); ABS Lymphocytes 0.8 10^3/ul (1.0-4.8); ABS Monocytes 0.5 10^3/ul (0-0.8); ABS Neutrophils 3.8 10^3/ul (1.5-7.7); Eosinophil % 1.6 %; Hematocrit 26 % (35-47); Hemoglobin 8.2 g/dL (12.0-16.0); Lymphocyte % 15.5 %; Mean Corpuscular HGB Conc 32 g/dL (31-36); Mean Corpuscular Hemoglobin 30 pg (27-31); Mean Corpuscular Volume 93 fL (80-97); Mean Platelet Volume 7.5 fL (7.4-10.4); Platelet Count 431 10^3/uL (150-450); Red Blood Count 2.74 10^6 /uL (3.70-4.87); Red Cell Distribution Width 17 % (10-15); White Blood Count 5.2 10^3/uL (3.5-10.8)
[2021-12-19 07:22] LABS: Calcium 8.4 mg/dL (8.6-10.3); Globulin 2.9 g/dL (2-4); Potassium 4.4 mmol/L (3.5-5.0); Total Bilirubin 0.4 mg/dL (0.2-1.0); Total Protein 5.9 g/dL (6.4-8.9); eGFR CKD-EPI 78.5 (>60)
[2021-12-19] MEDS: Magnesium Hydroxide LIQ 30 ML UDC PO PRN (09:43)
[2021-12-25] MEDS: Magnesium Hydroxide LIQ 30 ML UDC PO PRN (07:23)
[2021-12-26 06:35] VITALS: BP 155/82
[2021-12-26 07:21] LABS: ABS Eosinophils 0.1 10^3/ul (0-0.6); ABS Lymphocytes 0.9 10^3/ul (1.0-4.8); ABS Monocytes 0.4 10^3/ul (0-0.8); ABS Neutrophils 1.8 10^3/ul (1.5-7.7); Eosinophil % 3.8 %; Hematocrit 25 % (35-47); Hemoglobin 8.3 g/dL (12.0-16.0); Lymphocyte % 27.9 %; Mean Corpuscular HGB Conc 33 g/dL (31-36); Mean Corpuscular Hemoglobin 31 pg (27-31); Mean Corpuscular Volume 93 fL (80-97); Mean Platelet Volume 7.7 fL (7.4-10.4); Platelet Count 317 10^3/uL (150-450); Red Blood Count 2.66 10^6 /uL (3.70-4.87); Red Cell Distribution Width 17 % (10-15); White Blood Count 3.3 10^3/uL (3.5-10.8)
[2021-12-26 07:46] LABS: Albumin 2.9 g/dL (3.2-5.2); Albumin/Globulin Ratio 1.1 (1-3); Calcium 8.2 mg/dL (8.6-10.3); Globulin 2.6 g/dL (2-4); Potassium 4.2 mmol/L (3.5-5.0); Total Bilirubin 0.2 mg/dL (0.2-1.0); Total Protein 5.5 g/dL (6.4-8.9); eGFR CKD-EPI 82.4 (>60)
== END 2021-12-26 14:30 | disposition home health service (06) | DRG 561 ==
LOC: PMRU 16:19
PROVIDERS: ADMIT Physical Medicine & Rehabilitation; ATTEND Physical Medicine & Rehabilitation

== ENCOUNTER 2023-03-19 17:23 | Inpatient (IN) ==
[2023-03-19] MEDS: NS 0.9% 1000 ml BAG 1,000 ML IV ONE (18:44)
[2023-03-19 19:06] LABS: ABS Eosinophils 0.1 10^3/uL (0.0-0.5); ABS Lymphocytes 1.1 10^3/uL (1.0-4.8); ABS Monocytes 0.6 10^3/uL (0.0-0.9); ABS Neutrophils 3.7 10^3/uL (1.5-7.6); ABS Nucleated RBC 0.01 10^3/ul; Eosinophil % 1.4 %; Hematocrit 30.5 % (35-45); Lymphocyte % 20.3 %; Mean Corpuscular Volume 90.9 fL (80-97); Mean Platelet Volume 9.5 fL (7.5-11.2); Nucleated Red Blood Cells % 0.1 %/100WBC (0.0-0.8); Platelet Count 279 10^3/uL (150-450); Red Blood Count 3.35 10^6/uL (3.63-4.92); Red Cell Distribution Width 15.7 % (12-17); White Blood Count 5.4 10^3/uL (3.8-11.8)
[2023-03-19 19:33] LABS: ALT 6 U/L (7-52); Albumin 2.9 g/dL (3.2-5.2); Albumin/Globulin Ratio 0.8 (1-3); Alkaline Phosphatase 89 U/L (35-149); Anion Gap 12 mmol/L (2-16); Blood Urea Nitrogen 110 mg/dL (6-24); CO2 Carbon Dioxide 18 mmol/L (22-32); Chloride 113 mmol/L (101-111); Creatinine, Serum 2.11 mg/dL (0.51-0.95); Globulin 3.6 g/dL (2-4); Glucose 94 mg/dL (70-100); Lipase 21 U/L (11.0-82.0); Sodium 143 mmol/L (135-145); Total Bilirubin 0.3 mg/dL (0.2-1.0); Total Protein 6.5 g/dL (6.4-8.9); eGFR CKD-EPI 22.5 (>60)
[2023-03-19] MEDS ORDERED: Ondansetron ODT 4 mg TAB 4 MG TAB PO PRN (23:02)
[2023-03-20] MEDS: Lactated Ringers 1000 ml BAG 1,000 ML IV SCH (02:24)
[2023-03-20] MEDS: Azithromycin 500 mg/250 ml NS 500 MG/250 ML BAG IVPB SCH (05:14)
[2023-03-20 06:08] LABS: Urine Appearance Turbid; Urine Bilirubin Negative (Negative); Urine Blood Negative (Negative); Urine Color Light-Yellow; Urine Glucose Negative (Negative); Urine Ketones Negative (Negative); Urine Nitrite Negative (Negative); Urine Protein Trace (Negative); Urine Specific Gravity 1.013 (1.002-1.030); Urine Urobilinogen Negative (Negative)
[2023-03-20 06:17] LABS: ABS Eosinophils 0.2 10^3/uL (0.0-0.5); ABS Lymphocytes 1.2 10^3/uL (1.0-4.8); ABS Monocytes 0.6 10^3/uL (0.0-0.9); ABS Neutrophils 2.9 10^3/uL (1.5-7.6); Eosinophil % 3.2 %; Hemoglobin 8.7 g/dL (11.5-14.3); Lymphocyte % 25.3 %; Mean Corpuscular Hemoglobin 30.2 pg (27-33); Mean Corpuscular Hgb Conc 33.4 g/dL (31-36); Mean Corpuscular Volume 90.3 fL (80-97); Platelet Count 231 10^3/uL (150-450); Red Blood Count 2.88 10^6/uL (3.63-4.92); Red Cell Distribution Width 15.3 % (12-17); White Blood Count 4.9 10^3/uL (3.8-11.8)
[2023-03-20 06:20] LABS: Urine Bacteria 1+ /HPF (Absent); Urine Red Blood Cell Absent /HPF (0-Trace); Urine Squamous Epithelial Cell Present /HPF (Absent); Urine White Blood Cell 3+(>20/hpf) /HPF (0-Trace)
[2023-03-20 06:32] LABS: C Reactive Protein 65.99 mg/L (<8.01); Calcium 8.7 mg/dL (8.6-10.3); Creatinine, Serum 1.93 mg/dL (0.51-0.95); Magnesium 1.8 mg/dL (1.9-2.7); Potassium 4.8 mmol/L (3.5-5.0); eGFR CKD-EPI 25.1 (>60)
[2023-03-20] MEDS: Pentoxifylline CR 400 mg TAB 400 MG PO SCH (08:37)
[2023-03-20] MEDS: cefTRIAXone 1 gm/50 mL D5W 1 GM/50 ML BAG IV SCH (09:38)
[2023-03-20] MEDS: Magnesium Sulfate 2 gm BAG 2 GM/50 ML BAG IVPB ONE (16:55)
[2023-03-21] MEDS: Azithromycin 500 mg/250 ml NS 500 MG/250 ML BAG IVPB SCH (05:11)
[2023-03-21] MEDS: cefTRIAXone 1 gm/50 mL D5W 1 GM/50 ML BAG IV SCH (07:45)
[2023-03-21] MEDS: Lactated Ringers 1000 ml BAG 1,000 ML IV SCH (09:00)
[2023-03-21 10:24] LABS: Hematocrit 27.4 % (35-45); Mean Corpuscular Hemoglobin 29.7 pg (27-33); Mean Corpuscular Hgb Conc 32.8 g/dL (31-36); Mean Corpuscular Volume 90.5 fL (80-97); Platelet Count 254 10^3/uL (150-450); Red Blood Count 3.03 10^6/uL (3.63-4.92); Red Cell Distribution Width 15.7 % (12-17); White Blood Count 4.7 10^3/uL (3.8-11.8)
[2023-03-21 10:42] LABS: Calcium 8.8 mg/dL (8.6-10.3); Creatinine, Serum 1.1 mg/dL (0.51-0.95); Potassium 4.4 mmol/L (3.5-5.0); eGFR CKD-EPI 49.2 (>60)
[2023-03-21 11:51] LABS: Magnesium 2.3 mg/dL (1.9-2.7)
[2023-03-21 17:19] LABS: Creatinine, Serum 1.13 mg/dL (0.51-0.95); Potassium 4.8 mmol/L (3.5-5.0); eGFR CKD-EPI 47.7 (>60)
[2023-03-22] MEDS: cefTRIAXone 1 GM Q24H (ADVAN) IVPB SCH (09:04)
[2023-03-22 10:07] LABS: Creatinine, Serum 1.03 mg/dL (0.51-0.95); Potassium 4.5 mmol/L (3.5-5.0); eGFR CKD-EPI 53.3 (>60)
[2023-03-22 10:58] VITALS: BP 157/62
== END 2023-03-22 14:30 | DRG 444 ==
LOC: ED 17:23 → SUATTDRO 20:47 → EDHOLD 20:47 → MED 03-20 16:05
PROVIDERS: ADMIT Internal Medicine; ATTEND Hospitalist